=== PATIENT | female | born 1955 | race Two or more races ===

== ENCOUNTER 2019-01-15 03:09 | Inpatient (IN) | payer OTHER ==
[~2019-01-15] VITALS: Ht 152.4 cm; Wt 55.3 kg
[2019-01-15] VITALS (7 sets, daily range): BP systolic 156–199; BP diastolic 73–81
[2019-01-15] MEDS ORDERED: MAG HYDROX/AL HYDROX/SIMETH 30 ML UDC PO PRN (05:30)
[2019-01-15] MEDS ORDERED: Z GUARD REMEDY 2 OZ OINT TP PRN (05:30)
[2019-01-15] MEDS ORDERED: DEXTROSE 50%-WATER 50 ML DISP.SYRIN IV PRN (05:30)
[2019-01-15] MEDS ORDERED: HYDROCODONE/APAP 5/325MG 1 EACH TABLET PO PRN (05:30)
[2019-01-15] MEDS ORDERED: ONDANSETRON HCL/PF 4 MG/2 ML VIAL IVP PRN (05:30)
[2019-01-15] MEDS ORDERED: ZOLPIDEM TARTRATE 5 MG TABLET PO PRN (05:30)
[2019-01-15] MEDS ORDERED: MAGNESIUM HYDROXIDE 30 ML UDC PO PRN (05:30)
[2019-01-15] MEDS ORDERED: ACETAMINOPHEN 325 MG TABLET PO PRN (05:30)
[2019-01-15] MEDS ORDERED: LEVOTHYROXINE SODIUM 75 MCG TABLET PO SCH (07:30)
--- NOTE | 2019-01-15 07:30 | NUR ---
RN NOTES RECEIVED PATIENT IN BED, ASLEEP BUT EASILY AWAKEN BY VERBAL STIMULI, SPEAK PRIMARILY IN [place],PATIENT PALE IN APPEARANCE. NOT ON CARDIO-RESPIRATORY DISTRESS, ON ROOM AIR, NO SOB NOTED, SINUS RHYTHM ON THE MONITOR WITH HR ON THE 60'S, DENIES ANY PAIN. PATIENT HAVE VERBALIZED THAT SHE HAS SOME DIFFICULTY WITH SIGHT DUE TO CATARACT. IV ACCESS NOTED ON THE LAC: IN PLACE AND INTACT, FLUSHES WELL. PATIENT ENCOURAGE TO VERBALIZE FEELINGS AND CONCERNS, CALL LIGHT PLACED WITHIN REACH, SAFETY MEASURES OBSERVED AND MAINTAINED, BED LOW AND LOCKED POSITION, SRX2 UP, BED ALARM ON, WILL CONTINUE TO MONITOR AND ANTICIPATE NEEDS
[2019-01-15 07:40] LABS: BASOPHILS % (AUTO) 0.8 % (0.0-2.0); EOSINOPHILS % (AUTO) 3.7 % (0.0-6.0); HEMATOCRIT 27 % (33-45); HEMOGLOBIN 9.3 g/dL (11.5-14.8); LYMPHOCYTES # (AUTO) 1.3 /CMM (0.8-4.8); LYMPHOCYTES % (AUTO) 34.2 % (20.0-44.0); MEAN CORPUSCULAR HGB CONC 35 g/dl (31.0-36.0); MEAN CORPUSCULAR VOLUME 90 fL (82-100); MONOCYTES # (AUTO) 0.5 /CMM (0.1-1.30); NEUTROPHILS # (AUTO) 1.8 /CMM (1.8-8.9); NEUTROPHILS % (AUTO) 48.3 % (43.0-81.0); PLATELET COUNT (AUTO) 233 /CMM (150-450); RED BLOOD CELL COUNT(AUTO) 2.99 MIL/uL (4.0-5.2); WHITE BLOOD COUNT (AUTO) 3.7 K/uL (4.3-11.0)
[2019-01-15 07:49] LABS: BILIRUBIN,TOTAL 0.3 mg/dL (0.2-1.0); CALCIUM, SERUM 7.6 mg/dL (8.5-10.1); MAGNESIUM 2.9 mg/dL (1.8-2.4); PHOSPHORUS 4.1 mg/dL (2.5-4.9); TOTAL PROTEIN, SERUM 5.4 g/dL (6.4-8.2)
[2019-01-15 07:57] LABS: CREATININE 7.8 mg/dL (0.6-1.3)
--- NOTE | 2019-01-15 08:00 | NUR ---
RN NOTES DR. MENDIOLA AT THE UNIT, ASKED FOR MEDICATION RECONCILIATION WITH ORDERS, NOTED AND CARRIED OUT
[2019-01-15 08:05] LABS: THYROID STIMULATING HORMONE 9.597 uIU/mL (0.358-3.74)
[2019-01-15] MEDS ORDERED: CLON0.1T PO (08:13)
[2019-01-15] MEDS ORDERED: INSU100V39 SQ (08:13)
[2019-01-15] MEDS ORDERED: CHOL20004 PO (08:13)
[2019-01-15] MEDS ORDERED: CALC0.5C11 PO (08:13)
[2019-01-15] MEDS ORDERED: ASPI-605 PO (08:13)
[2019-01-15] MEDS ORDERED: ATOR40TA PO (08:13)
[2019-01-15] MEDS ORDERED: LEVO150T8 PO (08:13)
[2019-01-15] MEDS ORDERED: FERR325T28 PO (08:13)
[2019-01-15] MEDS ORDERED: FOLI0.8T23 PO (08:13)
[2019-01-15] MEDS ORDERED: SUCR500T PO (08:13)
[2019-01-15] MEDS ORDERED: INSU100I26 SQ (08:13)
[2019-01-15] MEDS ORDERED: METO5TAB7 PO (08:13)
[2019-01-15] MEDS ORDERED: BUME1TAB8 PO (08:13)
[2019-01-15] MEDS ORDERED: NIFE60TA69 PO (08:13)
[2019-01-15] MEDS ORDERED: FOLI1TAB16 PO (08:13)
[2019-01-15] MEDS: BLOOD SUGAR DIAGNOSTIC 1 EACH STRIP IN SCH ×4 (08:23→21:52)
[2019-01-15] MEDS: ASPIRIN EC 81 MG TABLET.DR PO SCH (08:23)
--- NOTE | 2019-01-15 10:00 | NUR ---
RN NOTES ABDULLAHI GÓMEZ AT BEDSIDE AT THIS TIME DOING DIALYSIS
--- NOTE | 2019-01-15 12:00 | NUR ---
RN NOTES BLOOD PRESSURE AT 199/81 UPON CHECKED AND 188/[address] MENDIOLA PAGED AND INFORMED ABOUT THE SITUATION. PER MD HE'LL PUT IN NEW ORDERS
[2019-01-15] MEDS: INSULIN REGULAR, HUMAN 100 UNIT/ML 3 ML VIAL SQ PRN ×2 (12:02→17:42)
[2019-01-15] MEDS ORDERED: ASPIRIN EC 81 MG TABLET.DR PO SCH (12:30)
[2019-01-15] MEDS ORDERED: CLONIDINE HCL 0.1 MG TABLET PO PRN (12:30)
[2019-01-15] MEDS ORDERED: Medication Not On Formulary EA (Sucroferric Oxyhydroxide (Velphoro) 500 MG) PO SCH (13:00)
--- NOTE | 2019-01-15 13:00 | NUR ---
RN NOTES PATIENT GIVEN PRN CLONIDINE FOR THE ELEVATED BLOOD PRESSURE
[2019-01-15] MEDS: BUMETANIDE (1 MG) 1 MG TABLET PO SCH ×2 (14:15→17:39)
[2019-01-15] MEDS: CLOPIDOGREL BISULFATE 75 MG TABLET PO SCH (14:15)
--- NOTE | 2019-01-15 18:00 | NUR ---
RN NOTES PAGED DR. MENDIOLA FOR BLOOD PRESSURE AT 170/8OMMHG AND THAT I DONT HAVE ANY PRN ORDER AT THIS TIME. OBTAINED CHANGE OF ORDER FOR CLONIDINE0.1MG PO QBID TO PRN Q4 FOR SBP>150MMHG. ORDER NOTED AND CARRIED OUT
--- NOTE | 2019-01-15 19:25 | NUR ---
RN NOTES PATIENT IN BED RESTING COMFORTABLY AT THIS TIME. NO S/S OF ACUTE DISTRESS NOTED, RESPIRATION EVEN AND UNLABORED. NO SOB NOTED. PATIENT ALERT AND ORIENTED X 4, DENIES ANY PAIN OR DISCOMFORT AT THIS TIME. LEFT AC 18 GAUGE, NOTED WITH NO S/S OF INFECTION, SAFETY MAINTAINED, BED AT THE LOWEST, LOCKED POSITION, CALL LIGHT WITHIN REACH. WILL CONTINUE TO MONITOR PATIENT PER PLAN OF CARE.
[2019-01-15] MEDS: CLONIDINE HCL 0.1 MG TABLET PO PRN (19:31)
--- NOTE | 2019-01-15 21:34 | NUR ---
Primary language is Omani, alert and pleasant. Met with spouse and daughter at bedside. Patient lives at home with spouse in a single level dwelling. Prior to admission, she was ambulatory and semi-independent with adl's. She owns a walker and shower chair and currently on service with homehealth but she does not remember the name and contact info of the homehealth agency. She is on peritoneal dialysis at home everyday with adequate supplies. Her renal doctor is Dr. Hayward in [place] [phone]. [facility] info was provided to family to access benefits and resources. Current dc plan is to return home and resume homehealth care, family can provide ride. Addendum: 01/15/19 at 2137 by CATARINO ALVAREZ RN Amended: Links added.
[2019-01-15] MEDS: ATORVASTATIN 40 MG TABLET PO SCH (21:48)
[2019-01-15] MEDS ORDERED: ATORVASTATIN 40 MG TABLET PO SCH ×2 (22:00)
[2019-01-16 04:00] VITALS: BP 164/74
[2019-01-16] MEDS: CLONIDINE HCL 0.1 MG TABLET PO PRN (04:01)
--- NOTE | 2019-01-16 04:02 | NUR ---
PATIENT BLOOD PRESSURE NOTED 164/74, WITH PULSE 68 AT THIS TIME, PRN CLONIDINE GIVEN ORDERED. WILL CONTINUE TO MONITOR
--- NOTE | 2019-01-16 07:11 | NUR ---
RN EXIT NOTES PATIENT REMAINED IN BED, SLEEPING COMFORTABLY AT THIS TIME . NO S/S OF ACUTE DISTRESS NOTED, RESPIRATION EVEN AND UNLABORED. NO SOB NOTED. PATIENT NOTED WITH NO S/S OF PAIN OR DISCOMFORT. LEFT AC 18 GAUGE, NOTED WITH NO S/S OF INFECTION, ALL DUE MEDS GIVEN ORDERED, PATENT TOLERATED WELL. SAFETY MAINTAINED, BED AT THE LOWEST, LOCKED POSITION, CALL LIGHT WITHIN REACH. WILL ENDORSE TO AM SHIFT NURSE FOR GREER.
[2019-01-16] MEDS ORDERED: LEVOTHYROXINE SODIUM 150 MCG TABLET PO SCH (07:30)
[2019-01-16] MEDS: BLOOD SUGAR DIAGNOSTIC 1 EACH STRIP IN SCH ×4 (07:30→21:20)
--- NOTE | 2019-01-16 07:30 | NUR ---
MS RN OPENING NOTE RECEIVED REPORT FROM [facility] SHIFT NURSE. PT ASLEEP IN BED, ON ROOM AIR, RESPIRATIONS EASY UNLABORED, NO SIGNS OF RESPIRATORY DISTRESS NOTED. LEFT AC G18 SALINE LOCK, FLUSHED LINE WITH NS, LINE IS PATENT. BED IN LOW POSITION, LOCKED, CALL LIGHT WITHIN REACH.
[2019-01-16 08:00] VITALS: BP_SYST 163; BP_SYST 165; BP_DIAS 76; BP_DIAS 82
[2019-01-16] MEDS: LEVOTHYROXINE SODIUM 75 MCG TABLET PO SCH (08:37)
[2019-01-16] MEDS: CHOLECALCIFEROL 1,000 UNIT TABLET (VIT D3) PO SCH (09:15)
[2019-01-16] MEDS: METOLAZONE 2.5 MG TABLET PO SCH (09:15)
[2019-01-16] MEDS: NIFEdipine XL 60 MG TAB PO SCH (09:17)
[2019-01-16] MEDS: FOLIC ACID 1 MG TABLET PO SCH (09:17)
[2019-01-16] MEDS: CLOPIDOGREL BISULFATE 75 MG TABLET PO SCH (09:17)
[2019-01-16] MEDS: CALCITRIOL 0.25 MCG CAPSULE PO SCH (09:17)
[2019-01-16] MEDS: FERROUS SULFATE (325 MG) 325 MG/TAB TABLET PO SCH (09:17)
[2019-01-16] MEDS: ASPIRIN EC 81 MG TABLET.DR PO SCH (09:17)
[2019-01-16] MEDS: BUMETANIDE (1 MG) 1 MG TABLET PO SCH ×2 (09:18→16:29)
[2019-01-16] MEDS: INSULIN REGULAR, HUMAN 100 UNIT/ML 3 ML VIAL SQ PRN ×3 (10:00→21:27)
[2019-01-16 13:26] LABS: EOSINOPHILS % (AUTO) 3.3 % (0.0-6.0); HEMATOCRIT 29 % (33-45); HEMOGLOBIN 9.9 g/dL (11.5-14.8); LYMPHOCYTES # (AUTO) 1.4 /CMM (0.8-4.8); LYMPHOCYTES % (AUTO) 28.1 % (20.0-44.0); MEAN CORPUSCULAR HGB CONC 34 g/dl (31.0-36.0); MEAN CORPUSCULAR VOLUME 90 fL (82-100); MONOCYTES # (AUTO) 0.6 /CMM (0.1-1.30); MONOCYTES % (AUTO) 11.5 % (2.0-12.0); NEUTROPHILS # (AUTO) 2.8 /CMM (1.8-8.9); NEUTROPHILS % (AUTO) 56.1 % (43.0-81.0); PLATELET COUNT (AUTO) 262 /CMM (150-450); RED BLOOD CELL COUNT(AUTO) 3.24 MIL/uL (4.0-5.2); WHITE BLOOD COUNT (AUTO) 4.9 K/uL (4.3-11.0)
[2019-01-16 13:33] LABS: CALCIUM, SERUM 7.9 mg/dL (8.5-10.1); POTASSIUM 5.1 mmol/L (3.5-5.1)
[2019-01-16 13:38] LABS: CREATININE 7.7 mg/dL (0.6-1.3)
[2019-01-16 16:00] VITALS: BP 94/67
--- NOTE | 2019-01-16 18:09 | NUR ---
PT REPORTED HEADACHE RATED A 9/10. PT REPORTED THE CAUSE OF THE HEADACHE WAS THE SMELL OF BLEACH FROM HER ROOM BEING CLEANED. ADMINISTERED PRN TYLENOL 650MG PO, PT TOLERATED WELL.
--- NOTE | 2019-01-16 18:28 | NUR ---
MS RN CLOSING NOTE. PT AWAKE IN BED, FAMILY BY BEDSIDE, ALERT AND ORIENTED X 4, ON ROOM AIR, SATURATING WELL, RESPIRATIONS EASY AND UNLABORED, NO SIGNS OF RESPIRATORY DISTRESS NOTED. LEFT AC G18 SALINE LOCK, LINE IS PATENT. PROVIDED SAFETY AND COMFORT TO PT THROUGHOUT SHIFT. BED IN LOW POSITION, LOCKED, CALL LIGHT WITHIN REACH. WILL ENDORSE TO NOC SHIFT NURSE.
--- NOTE | 2019-01-16 19:25 | NUR ---
MS/RN ENTRY NOTES PATIENT IN BED RESTING COMFORTABLY AT THIS TIME. NO S/S OF ACUTE DISTRESS NOTED, RESPIRATION EVEN AND UNLABORED. NO SOB NOTED. PATIENT ALERT AND ORIENTED X 4, [place] SPEAKING, DENIES ANY PAIN OR DISCOMFORT AT THIS TIME, AT THE BED SITE. LEFT AC 18 GAUGE, NOTED WITH NO S/S OF INFECTION, SAFETY MAINTAINED, BED AT THE LOWEST, LOCKED POSITION, CALL LIGHT WITHIN REACH. WILL CONTINUE TO MONITOR PATIENT PER PLAN OF CARE.
[2019-01-16 20:00] VITALS: BP 130/61
[2019-01-16] MEDS: ATORVASTATIN 40 MG TABLET PO SCH (21:21)
[2019-01-17 04:00] VITALS: BP 125/68
--- NOTE | 2019-01-17 06:53 | NUR ---
MS/RN NOTES PATIENT REMAINED IN STABLE CONDITION, NO SIGNIFICANT CHANGE IN CONDITION NOTED, RESPIRATION EVEN AND UNLABORED, NO SOB NOTED, NO S/S OF ACUTE DISTRESS NOTED. ALL DUE MEDS GIVEN ORDERED, PATIENT TOLERATED WELL. DENIES ANY PAIN AT THIS TIME. ALL NEEDS ATTENDANT, KEPT CLEAN AND DRY, SAFETY MAINTAINED, BED AT THE LOWEST LOCKED POSITION, CALL LIGHT WITHIN REACH, WILL ENDORSE TO AM SHIFT NURSE FOR GREER.
[2019-01-17 08:00] VITALS: BP 153/74
--- NOTE | 2019-01-17 08:30 | NUR ---
MS RN NOTE DR ABREU FIELD KILN BURNER AWARE NA 125 ,CREATINE 8.5 OK TO DO PD
[2019-01-17] MEDS: CALCITRIOL 0.25 MCG CAPSULE PO SCH (08:40)
[2019-01-17] MEDS: NIFEdipine XL 60 MG TAB PO SCH (08:40)
[2019-01-17] MEDS: LEVOTHYROXINE SODIUM 75 MCG TABLET PO SCH (08:40)
[2019-01-17] MEDS: CLOPIDOGREL BISULFATE 75 MG TABLET PO SCH (08:41)
[2019-01-17] MEDS: CHOLECALCIFEROL 1,000 UNIT TABLET (VIT D3) PO SCH (08:41)
[2019-01-17] MEDS: ASPIRIN EC 81 MG TABLET.DR PO SCH (08:41)
[2019-01-17] MEDS: FERROUS SULFATE (325 MG) 325 MG/TAB TABLET PO SCH (08:41)
[2019-01-17] MEDS: METOLAZONE 2.5 MG TABLET PO SCH (08:41)
[2019-01-17] MEDS: BUMETANIDE (1 MG) 1 MG TABLET PO SCH (08:41)
[2019-01-17] MEDS: FOLIC ACID 1 MG TABLET PO SCH (08:42)
[2019-01-17 08:45] LABS: BASOPHILS # (AUTO) 0.1 /CMM (0.0-0.2); BASOPHILS % (AUTO) 1.1 % (0.0-2.0); EOSINOPHILS % (AUTO) 2.6 % (0.0-6.0); HEMATOCRIT 32 % (33-45); HEMOGLOBIN 10.7 g/dL (11.5-14.8); LYMPHOCYTES # (AUTO) 1.3 /CMM (0.8-4.8); MEAN CORPUSCULAR HGB CONC 33 g/dl (31.0-36.0); MEAN CORPUSCULAR VOLUME 91 fL (82-100); MONOCYTES # (AUTO) 0.6 /CMM (0.1-1.30); MONOCYTES % (AUTO) 10.2 % (2.0-12.0); NEUTROPHILS # (AUTO) 3.9 /CMM (1.8-8.9); NEUTROPHILS % (AUTO) 64.1 % (43.0-81.0); PLATELET COUNT (AUTO) 316 /CMM (150-450); RED BLOOD CELL COUNT(AUTO) 3.56 MIL/uL (4.0-5.2); WHITE BLOOD COUNT (AUTO) 6.1 K/uL (4.3-11.0)
[2019-01-17] MEDS: INSULIN REGULAR, HUMAN 100 UNIT/ML 3 ML VIAL SQ PRN ×2 (08:47→12:33)
[2019-01-17] MEDS: BLOOD SUGAR DIAGNOSTIC 1 EACH STRIP IN SCH ×2 (08:53→12:32)
[2019-01-17 09:16] LABS: ALBUMIN 2.6 g/dL (3.4-5.0); BILIRUBIN,TOTAL 0.3 mg/dL (0.2-1.0); CALCIUM, SERUM 8.6 mg/dL (8.5-10.1); MAGNESIUM 3.2 mg/dL (1.8-2.4); POTASSIUM 5.7 mmol/L (3.5-5.1); TOTAL PROTEIN, SERUM 6.5 g/dL (6.4-8.2)
--- NOTE | 2019-01-17 09:37 | NUR ---
MS/RN NOTES PATIENT IN BED RESTING COMFORTABLY AT THIS TIME. NO S/S OF ACUTE DISTRESS NOTED, RESPIRATION EVEN AND UNLABORED. NO SOB NOTED. PATIENT ALERT AND ORIENTED X 4, [place] SPEAKING, DENIES ANY PAIN OR DISCOMFORT AT THIS TIME, AT THE BED SITE. LEFT AC 18 GAUGE, NOTED WITH NO S/S OF INFECTION, SAFETY MAINTAINED, BED AT THE LOWEST, LOCKED POSITION, CALL LIGHT WITHIN REACH. WILL CONTINUE TO MONITOR PATIENT PER PLAN OF CARE,PLAN OF CARE DISCUSSED WITH PATIENT
[2019-01-17 09:38] LABS: CREATININE 8.5 mg/dL (0.6-1.3)
--- NOTE | 2019-01-17 11:04 | NUR ---
MS RN NOTE ANGEL LUIS TOBIAS RN PACK CHANGER NOTIFIED THAT CREATINE 8.5 . STATED AFTER PERITONEAL DIALYSIS OK TO DISCHARGE IF OK TO AMBULATE WELL ,WILL \U
--- NOTE | 2019-01-17 11:06 | NUR ---
MS RN NOTE PERITONEAL DIALYSES AT THIS TIME
--- NOTE | 2019-01-17 12:00 | NUR ---
MS RN NOTE AMBULATED WITH WALKER WITH STAND BY ASSISTANCE
[2019-01-17] MEDS ORDERED: ATOR40TA PO (13:23)
[2019-01-17] MEDS ORDERED: Clopidogrel Bisulfate PO (13:23)
[2019-01-17 14:55] VITALS: BP 153/75
[2019-01-17] MEDS: CLONIDINE HCL 0.1 MG TABLET PO PRN (14:55)
--- NOTE | 2019-01-17 15:00 | NUR ---
MS RN NOTE BP153/78 CATAPRES 0.1 PO GIVEN WILL F\U
--- NOTE | 2019-01-17 15:02 | NUR ---
MS RN NOTE DISCHARGE INSTRUCTION GIVEN , UNDERSTOOD , EXPLAINED HOW TO TAKE NEW PX AND HOME MEDS AND POSSIBLE SIDE EFFECTS ALSO STROKE INSTRUCTION AND TEACHING , EXPLAINED ABOUT DIET AND MEDS AND S\S OF STROKE GIVEN, UNDERSTAND, INSTRUCTED TO F\U WITH PRIMARY CARE DOCTOR AND SCHEDULE WITH PERITONEAL DALASIS SCHEDULE , HL ON LAC REMOVED ,NO BLEEDING NOTED, BELONGING SIGHED,
--- NOTE | 2019-01-17 15:46 | NUR ---
MS RN NOTE BP 113/78 NO C\O CHEST PAIN , TAKEN TO LOBBY ON W\C WITH SLITTER HELPER AND , WENT HOME WITH STABLE CONDITION
== END 2019-01-17 15:40 | disposition home health service (06) | DRG 45 ==
LOC: TELE1 03:09 → MEDSG1 08:30
PROVIDERS: ADMIT Internal Medicine; ATTEND Nurse Practitioner Acute Care
PROC: 3E1M39Z Irrigation of Peritoneal Cavity using Dialysate, Percutaneous Approach (ICD-10-PCS; principal; 2019-01-15)
DX: I63.81 Other cerebral infarction due to occlusion or stenosis of small artery (principal); E11.22 Type 2 diabetes mellitus with diabetic chronic kidney disease; I12.0 Hypertensive chronic kidney disease with stage 5 chronic kidney disease or end stage renal disease; E87.1 Hypo-osmolality and hyponatremia; D63.1 Anemia in chronic kidney disease; E03.9 Hypothyroidism, unspecified; E78.5 Hyperlipidemia, unspecified; E87.5 Hyperkalemia; N18.6 End stage renal disease; Z79.4 Long term (current) use of insulin; Z99.2 Dependence on renal dialysis; I16.0 Hypertensive urgency; R47.81 Slurred speech; R29.700 NIHSS score 0
CPT/HCPCS: 36415; 80048-TC; 80053-TC; 80061-TC; 82962-TC; 83735-TC; 84100-TC; 84443-TC; 85025-TC; 85730-TC; 87081-TC; 90935-TC; 92526; 92611-TC; 97530-TC; 97535-TC; G0378; J1815